=== PATIENT | male | born 1965 | race Caucasian/White ===

== ENCOUNTER → 2016-05-11 | Outpatient (CLI) | payer SELFPAY ==
--- NOTE | 2016-05-11 16:30 | DI ---
PA /LATERAL CHEST X-RAY, 05/11/2016 3:41 PM : Clinical History: COPD with acute bronchitis. Previous Exam: 12/08/2015. There is no acute soft tissue or bony abnormality. Heart size is normal. There is no acute infiltrate or effusion. There is "tram tracking" in the lower lung bases, primarily on the right side consisten t with chronic bronchitis or bronchiectasis. This is actually more prominent than on the previous cassidy dy and there may be an acute bronchitic process superimposed on chronic bronchitis. The main pulmonar y artery is prominent and this patient may have pulmonary arterial hypertension. There are no pulmona ry nodules. Readin. No acute infiltrate or effusion is present. There is "tram tracking" typically associated with ch ronic bronchitis but this is actually more prominent than on the previous exam and the patient may chen ve superimposed acute bronchitis involving primarily the lower lobes. 2. There may be pulmonary arterial hypertension.
== END ==
LOC: RAD 15:45
PROVIDERS: ATTEND Nurse Practitioner
DX: J44.0 Chronic obstructive pulmonary disease with (acute) lower respiratory infection (principal); J45.909 Unspecified asthma, uncomplicated; Z87.891 Personal history of nicotine dependence
CPT/HCPCS: 71020